=== PATIENT | male | born 2000 | race Caucasian/White ===

== ENCOUNTER 2021-01-16 17:45 | Emergency (ER) | payer OTHER ==
[~2021-01-16] VITALS: Ht 177.8 cm; Wt 131.5 kg
[2021-01-16] MEDS ORDERED: ARIPIPRAZOLE5 MG PO (18:40)
[2021-01-16] MEDS ORDERED: BUPROPION XL300 MG PO (18:40)
[2021-01-16] MEDS ORDERED: CLONIDINE HCL0.1 MG PO (18:40)
== END 2021-01-16 22:39 ==
LOC: ED 17:45
DX: R45.851 Suicidal ideations (principal); F32.9 Major depressive disorder, single episode, unspecified; F41.9 Anxiety disorder, unspecified; Z88.1 Allergy status to other antibiotic agents; Z79.899 Other long term (current) drug therapy; Z20.822 Contact with and (suspected) exposure to COVID-19
CPT/HCPCS: 80053; 81001; 84443; 85025; 99285; C9803; G0480; U0003